=== PATIENT | male | born 1970 | race Hispanic/Latino ===

== ENCOUNTER 2024-03-14 18:26 | Inpatient (IN) | payer OTHER ==
[2024-03-14 19:02] LABS: #Basophils Less than 0.03 10x3/uL (0.0-0.2); %Basophils 0.6 % (0.0-1.0); %Eosinophils 4.4 % (0.0-10.0); %Lymphocytes 18.8 % (21.0-51.0); %Monocytes 12.7 % (0.0-10.0); %Neutrophils 63.5 % (42.0-75.0); Hemoglobin 6.5 g/dL (14.0-18.0); Mean Corpuscular HGB CONC 29.5 g/dL (32.0-36.0); Mean Corpuscular Hemoglobin 24.3 pg (27.0-31.0); Mean Corpuscular Volume 82.4 fL (78.0-98.0); Mean Platelet Volume 8.7 fL (7.4-10.4); Platelet Count 43 10x3/uL (130-400); RBC Distribution Width 14.9 % (11.5-14.5); Red Blood Cell (RBC) Count 2.67 mill/uL (4.70-6.10)
[2024-03-14 19:13] LABS: INR-International Normal Ratio 1.6; Prothrombin Time 19.2 sec (12.0-14.7)
[2024-03-14 19:14] LABS: PTT 41.1 sec (22.9-36.1)
[2024-03-14 19:24] LABS: ALT (SGPT) 12 U/L (8-55); AST (SGOT) 22 U/L (5-34); Alkaline Phosphatase 125 U/L (40-110); Anion Gap 10 mmol/L (10-20); BUN (Urea Nitrogen) 12 mg/dL (8.4-25.7); Band 3 % (5-11); Bilirubin, Total 2.2 mg/dL (0.2-1.2); Calc. Creatinine Clearance 0 mL/min (70-130); Calcium 8.4 mg/dL (7.8-10.44); Carbon Dioxide 20 mmol/L (22-29); Chloride 112 mmol/L (98-107); Eosinophils 5 % (0-10); Estimated GFR 103; Globulin 3.8 g/dL (2.4-3.5); Glucose 107 mg/dL (70-105); Hypochromia SLIGHT = 6-15 cells HPF (0-5); Large Platelets 3.9 % (0-5); Lymphocytes 16 % (21-51); Microcytosis SLIGHT = 6-15 cells HPF (0-5); Monocytes 5 % (0-10); Neutrophil 69 % (42-75); Platelet Adequacy Comment Platelets Decreased; Polychromasia SLIGHT = 2-3 cells HPF (0-2); Potassium 3.7 mmol/L (3.5-5.1); Protein, Total 6.8 g/dL (6.0-8.3); Reflex for Review?? YES; Smudge Cells 5.8 %; Sodium 138 mmol/L (136-145); Tear Drops SLIGHT = 2-5 cells HPF (0-1)
[2024-03-14 19:27] LABS: Troponin I Less than 0.010 ng/mL (< 0.028)
[2024-03-14] MEDS ORDERED: Pantoprazole 40 MG VIAL ONE (20:08)
[2024-03-14] MEDS ORDERED: Ondansetron PF 4 MG/2 ML Vial IVP PRN (23:27)
[2024-03-15 01:09] LABS: Hematocrit 22.9 % (42.0-52.0); Hemoglobin 6.9 g/dL (14.0-18.0)
[2024-03-15] MEDS: Octreotide Acetate 1,250 MCG in Sodium Chloride 0.9% 250 ML 250 ML IVPB SCH (04:02)
[2024-03-15 06:56] LABS: Hematocrit 27.3 % (42.0-52.0); Hemoglobin 8.1 g/dL (14.0-18.0); Mean Corpuscular HGB CONC 29.7 g/dL (32.0-36.0); Mean Corpuscular Hemoglobin 24.8 pg (27.0-31.0); Mean Corpuscular Volume 83.5 fL (78.0-98.0); Mean Platelet Volume 9.6 fL (7.4-10.4); Platelet Count 43 10x3/uL (130-400); RBC Distribution Width 14.6 % (11.5-14.5); Red Blood Cell (RBC) Count 3.27 mill/uL (4.70-6.10)
[2024-03-15 07:03] LABS: INR-International Normal Ratio 1.6; Prothrombin Time 19.2 sec (12.0-14.7)
[2024-03-15 07:04] LABS: PTT 42.7 sec (22.9-36.1)
[2024-03-15 07:17] LABS: Anion Gap 9 mmol/L (10-20); BUN (Urea Nitrogen) 11 mg/dL (8.4-25.7); Calc. Creatinine Clearance 172 mL/min (70-130); Calcium 8.5 mg/dL (7.8-10.44); Carbon Dioxide 19 mmol/L (22-29); Chloride 113 mmol/L (98-107); Estimated GFR 106; Glucose 84 mg/dL (70-105); Potassium 4.2 mmol/L (3.5-5.1); Sodium 137 mmol/L (136-145)
[2024-03-15 07:28] LABS: Band 5 % (5-11); Eosinophils 8 % (0-10); Lymphocytes 23 % (21-51); Macrocytosis SLIGHT = 6-15 cells HPF (0-5); Monocytes 6 % (0-10); Neutrophil 57 % (42-75); Ovalocytes SLIGHT = 2-5 cells HPF (0-1); Platelet Adequacy Comment Significant Decrease; Polychromasia SLIGHT = 2-3 cells HPF (0-2)
[2024-03-15 07:41] LABS: ALT (SGPT) 13 U/L (8-55); AST (SGOT) 22 U/L (5-34); Alkaline Phosphatase 129 U/L (40-110); Bilirubin, Direct 0.5 mg/dL (0.1-0.3); Bilirubin, Total 3.9 mg/dL (0.2-1.2); Protein, Total 6.8 g/dL (6.0-8.3)
[2024-03-15] MEDS ORDERED: Propranolol 10 MG TAB PO SCH (09:00)
[2024-03-15] MEDS: Spironolactone 25 MG TAB PO SCH (09:02)
[2024-03-15] MEDS: Pantoprazole 40 MG VIAL IVP SCH (09:03)
[2024-03-15] MEDS: Hydrochlorothiazide 25 MG TAB PO SCH (09:03)
[2024-03-15] MEDS: Furosemide 20 MG TAB PO SCH (09:03)
[2024-03-15] MEDS: Loratadine 10 MG TAB PO SCH (09:03)
[2024-03-15 13:12] LABS: Hematocrit 26.6 % (42.0-52.0)
[2024-03-15] MEDS: Acetaminophen 500 MG TAB PO PRN (14:12)
[2024-03-15 16:41] LABS: HBSAB Concentration 440.49 mIU/mL; HBsAg Index 0.32 S/CO (0-0.99); Hep B Surf AB REACTIVE (NonReactive); Hep B Surf Ag NONREACTIVE S/CO (NonReactive); Hep C IgG Ab NONREACTIVE S/CO (NonReactive); Hep C Index 0.16 S/CO (0-0.79)
[2024-03-15 16:43] LABS: Iron 31 ug/dL (65-175); Iron Binding Capacity, Total 341 mcg/dL (261-462)
[2024-03-15 20:49] LABS: Hemoglobin 7.7 g/dL (14.0-18.0)
[2024-03-16 01:38] VITALS: BMI 35.2
[2024-03-16 06:03] LABS: Hematocrit 24.4 % (42.0-52.0); Hemoglobin 7.4 g/dL (14.0-18.0); Mean Corpuscular HGB CONC 30.3 g/dL (32.0-36.0); Mean Corpuscular Hemoglobin 24.9 pg (27.0-31.0); Mean Corpuscular Volume 82.2 fL (78.0-98.0); Mean Platelet Volume 9.6 fL (7.4-10.4); Platelet Count 38 10x3/uL (130-400); RBC Distribution Width 14.8 % (11.5-14.5); Red Blood Cell (RBC) Count 2.97 mill/uL (4.70-6.10)
[2024-03-16 06:19] LABS: Anion Gap 12 mmol/L (10-20); BUN (Urea Nitrogen) 13 mg/dL (8.4-25.7); Calc. Creatinine Clearance 155 mL/min (70-130); Calcium 8.4 mg/dL (7.8-10.44); Carbon Dioxide 23 mmol/L (22-29); Chloride 106 mmol/L (98-107); Estimated GFR 103; Glucose 91 mg/dL (70-105); Potassium 3.7 mmol/L (3.5-5.1); Sodium 137 mmol/L (136-145)
[2024-03-16 06:36] LABS: Band 2 % (5-11); Elliptocytes SLIGHT = 2-5 cells HPF (0-1); Eosinophils 4 % (0-10); Hypochromia SLIGHT = 6-15 cells HPF (0-5); Lymphocytes 16 % (21-51); Metamyelocyte 1 % (0-0); Microcytosis SLIGHT = 6-15 cells HPF (0-5); Monocytes 5 % (0-10); Neutrophil 72 % (42-75); Platelet Adequacy Comment Significant Decrease; Polychromasia SLIGHT = 2-3 cells HPF (0-2); Toxic Granulation SLIGHT
[2024-03-16] MEDS ORDERED: PROPOFOL 20 ML ONE (10:27)
[2024-03-16] MEDS: Propranolol HCl 20 MG TAB PO SCH (20:31)
[2024-03-17 05:24] LABS: #Basophils Less than 0.03 10x3/uL (0.0-0.2); %Eosinophils 3.7 % (0.0-10.0); %Lymphocytes 17.2 % (21.0-51.0); %Neutrophils 65.6 % (42.0-75.0); Hematocrit 25.4 % (42.0-52.0); Mean Corpuscular HGB CONC 31.5 g/dL (32.0-36.0); Mean Corpuscular Hemoglobin 25.1 pg (27.0-31.0); Mean Corpuscular Volume 79.6 fL (78.0-98.0); Mean Platelet Volume 10.9 fL (7.4-10.4); Platelet Count 42 10x3/uL (130-400); RBC Distribution Width 14.6 % (11.5-14.5); Red Blood Cell (RBC) Count 3.19 mill/uL (4.70-6.10)
[2024-03-17 05:38] LABS: Anion Gap 12 mmol/L (10-20); BUN (Urea Nitrogen) 13 mg/dL (8.4-25.7); Calc. Creatinine Clearance 153 mL/min (70-130); Calcium 8.3 mg/dL (7.8-10.44); Carbon Dioxide 23 mmol/L (22-29); Chloride 105 mmol/L (98-107); Estimated GFR 103; Glucose 90 mg/dL (70-105); Potassium 3.4 mmol/L (3.5-5.1); Sodium 137 mmol/L (136-145)
[2024-03-17] MEDS ORDERED: Electrolyte Replacement Protocol 1 EACH FS SCH (08:13)
[2024-03-17 08:19] VITALS: TEMP 98.4
[2024-03-17] MEDS: Pantoprazole DR 40 MG TAB PO SCH (09:23)
[2024-03-17] MEDS: Potassium Chloride 20 MEQ TAB PO SCH (09:24)
[2024-03-17 12:36] VITALS: BP 113/62
== END 2024-03-17 17:09 | DRG 432 ==
LOC: EEVIPCON 18:26 → ERS 18:26 → OBS 22:26 → OBSVTOIN 03-17 08:11
PROVIDERS: ADMIT Internal Medicine; ATTEND Internal Medicine
PROC: 0DJ08ZZ Inspection of Upper Intestinal Tract, Via Natural or Artificial Opening Endoscopic (ICD-10-PCS; principal; 2024-03-16)
PROC: 30233N1 Transfusion of Nonautologous Red Blood Cells into Peripheral Vein, Percutaneous Approach (ICD-10-PCS; 2024-03-16)
PROC: 6A550Z2 Pheresis of Platelets, Single (ICD-10-PCS; 2024-03-16)
PROC: 30233R1 Transfusion of Nonautologous Platelets into Peripheral Vein, Percutaneous Approach (ICD-10-PCS; 2024-03-16)
DX: K70.31 Alcoholic cirrhosis of liver with ascites (principal); I85.11 Secondary esophageal varices with bleeding; K76.6 Portal hypertension; D61.818 Other pancytopenia; C22.0 Liver cell carcinoma; D64.9 Anemia, unspecified; I10 Essential (primary) hypertension; G40.909 Epilepsy, unspecified, not intractable, without status epilepticus; K31.89 Other diseases of stomach and duodenum; Z79.899 Other long term (current) drug therapy
CPT/HCPCS: 36415; 36430; 80048; 80053; 80076; 82274; 82728; 83540; 83550; 84484; 85014; 85018; 85025; 85060; 85610; 85730; 86706; 86708; 86803; 86850; 86900; 86901; 87340; 93005; 96374; 96375; 96376; G0378; J2354; J2470; J2704; J7050; P9016; P9035